=== PATIENT | male | born 1990 | race Hispanic/Latino ===

== ENCOUNTER 2019-06-04 08:05 | Emergency (ER) | payer OTHER ==
[~2019-06-04] VITALS: Ht 188 cm; Wt 81.8 kg
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
[2019-06-04] MEDS ORDERED: IBUP-1022 PO (09:08)
[2019-06-04] MEDS ORDERED: IBUPROFEN 600 MG TAB PO ONE (09:15)
[2019-06-04 09:28] VITALS: BP 127/74
== END 2019-06-04 09:23 | disposition home or self-care (01) ==
LOC: M ED 08:05 → EDBD 08:05 → M ED 09:23
DX: S16.1XXA Strain of muscle, fascia and tendon at neck level, initial encounter (principal); V49.49XA Driver injured in collision with other motor vehicles in traffic accident, initial encounter; Y92.410 Unspecified street and highway as the place of occurrence of the external cause; F17.210 Nicotine dependence, cigarettes, uncomplicated